=== PATIENT | male | born 1950 | race American Indian/Alaskan Native ===

== ENCOUNTER 2021-07-12 11:00 | Outpatient (CLI) | payer MEDICARE | END 2021-07-12 11:01 | disposition home or self-care (01) | LOC: SLR 11:00 | PROVIDERS: ATTEND Internal Medicine | DX: G47.30 Sleep apnea, unspecified (principal) | CPT/HCPCS: 95810 ==

== ENCOUNTER 2021-07-18 11:00 | Outpatient (CLI) | payer MEDICARE | END 2021-07-18 11:01 | disposition home or self-care (01) | LOC: SLR 11:00 | PROVIDERS: ATTEND Internal Medicine | DX: G47.33 Obstructive sleep apnea (adult) (pediatric) (principal) | CPT/HCPCS: 95811 ==

== ENCOUNTER 2021-08-08 12:18 | Outpatient (CLI) | payer MEDICARE ==
[2021-08-08 13:30] LABS: ABG Base Excess 3.4 mmol/L (-2.0-3.0); ABG HCO3 29.8 mmol/L (20.0-26.0); ABG Methemoglobin 0.6 % (0.0-1.5); ABG Oxygen Saturation 90.8 % (95.0-99.0); ABG PCO2 51.9 mm Hg; ABG PH 7.376 pH Units (7.350-7.450); ABG PO2 58.4 mm Hg (80.0-90.0)
== END 2021-08-08 12:19 | disposition home or self-care (01) ==
LOC: LAB 12:18
PROVIDERS: ATTEND Internal Medicine
DX: J44.9 Chronic obstructive pulmonary disease, unspecified (principal)
CPT/HCPCS: 82803

== ENCOUNTER 2021-12-09 11:35 | Outpatient (CLI) | payer MEDICARE ==
[2021-12-09 12:24] LABS: Hemoglobin 13.2 gm/dl (11.8-15.2); Mean Corpuscular HGB Conc 31 % (32-34); Mean Corpuscular Volume 88 fl (84-94); Platelet Count 203 K/mm3 (140-440); Red Blood Count 4.78 M/mm3 (3.65-5.03)
[2021-12-09 12:30] LABS: ABG Base Excess 3.9 mmol/L (-2.0-3.0); ABG HCO3 30.5 mmol/L (20.0-26.0); ABG Methemoglobin 0.7 % (0.0-1.5); ABG Oxygen Saturation 89.1 % (95.0-99.0); ABG PCO2 54.2 mm Hg; ABG PH 7.367 pH Units (7.350-7.450); ABG PO2 55.5 mm Hg (80.0-90.0)
[2021-12-09 12:40] LABS: INR 0.92 (0.87-1.13)
[2021-12-09 12:41] LABS: Partial Thromboplastin Time 30.5 Sec. (24.2-36.6)
[2021-12-09 12:46] LABS: Alanine Aminotransferase 13 units/L (7-56); Albumin 3.9 g/dL (3.9-5); BUN/Creatinine Ratio 13; Blood Urea Nitrogen 17 mg/dL (9-20); Calcium 9.3 mg/dL (8.4-10.2); Chol/HDL Ratio 2.48 %; HDL Cholesterol 31 mg/dL (40-59); Hemolysis Index 4; LDL Cholesterol,Direct 30 mg/dL (50-130)
--- NOTE | 2021-12-09 15:42 | XRay Report ---
CHEST 2 VIEWS INDICATION: SOB. COMPARISON: Full 2012. FINDINGS: Support devices: None. Heart: Within normal limits. Prominence of the blayne is similar to the previous exam. Lungs/Pleura: No acute air space or interstitial disease. No significant pleural effusion. Underlyi ng COPD remains. IMPRESSION: 1. Persistent COPD with hilar enlargement. 2. No acute appearing infiltrate. Signer Name: Sujit Kunz MD Signed: 12/09/2021 3:38 PM Workstation Name: [id number]
== END 2021-12-09 11:36 | disposition home or self-care (01) ==
LOC: XRAY 11:35
PROVIDERS: ATTEND Internal Medicine
DX: J44.9 Chronic obstructive pulmonary disease, unspecified (principal); E78.00 Pure hypercholesterolemia, unspecified; E11.9 Type 2 diabetes mellitus without complications; I10 Essential (primary) hypertension; K21.9 Gastro-esophageal reflux disease without esophagitis; G47.33 Obstructive sleep apnea (adult) (pediatric)
CPT/HCPCS: 36415; 71046; 80053; 80061; 82803; 84436; 84443; 85027; 85610; 85730

== ENCOUNTER 2022-01-17 18:00 | Emergency (ER) | payer MEDICARE ==
[2022-01-17] MEDS ORDERED: ALBUTEROL 2.5 MG/3 ML NEBU IH ONE (18:15)
[2022-01-17] MEDS ORDERED: IPRATROPIUM 0.02% NEBU 2.5 ML IH ONE (18:15)
[2022-01-17 18:30] LABS: Basophils # (Auto) 0.1 K/mm3 (0.0-0.1); Eosinophils % (Auto) 0.3 % (0.0-4.3); Hematocrit 39.7 % (35.5-45.6); Lymphocytes # (Auto) 0.7 K/mm3 (1.2-5.4); Lymphocytes % (Auto) 8.5 % (13.4-35.0); Mean Corpuscular HGB Conc 33 % (32-34); Mean Corpuscular Volume 87 fl (84-94); Monocytes # (Auto) 0.7 K/mm3 (0.0-0.8); Monocytes % (Auto) 8.1 % (0.0-7.3); Platelet Count 223 K/mm3 (140-440); Red Blood Count 4.58 M/mm3 (3.65-5.03); Red Cell Distribution Width 14.7 % (13.2-15.2)
--- NOTE | 2022-01-17 18:43 | XRay Report ---
XR chest 1V ap INDICATION / CLINICAL INFORMATION: SOB COMPARISON: 12/09/2021 FINDINGS: SUPPORT DEVICES: None. HEART / MEDIASTINUM: No significant abnormality. LUNGS / PLEURA: Bilateral pulmonary vascular congestion. Costophrenic sulci are sharp. No pneumothora x. ADDITIONAL FINDINGS: No significant additional findings. IMPRESSION: 1. There appears to be pulmonary vascular congestion. Correlate clinically. Signer Name: Alpesh Duran MD Signed: 01/17/2022 6:38 PM Workstation Name: [id number]
[2022-01-17 18:48] LABS: INR 0.89 (0.87-1.13)
[2022-01-17 18:55] VITALS: BP 180/100
--- NOTE | 2022-01-17 18:55 | Emergency Department Report ---
HPI - General Chief Complaint: Dyspnea/Respdistress Time Seen by Provider: 01/17/22 18:06 - HPI HPI: 71-year-old -[place] male presents to the emergency department via EMS from home with complaint of a 1 to 2-day history of shortness of breath. He has a history of COPD for which he is oxygen dependent at 4 L oxygen via nasal cannula. The patient came in through triage and was found to have a oxygen saturation of 67% on 4 L. He follows with a Dr. Campos for pulmonology. He denies any fever, chest pain, lower extremity swelling. No recent travel or sick contacts at home. He is vaccinated for COVID-19. ED Past Medical Hx - Past Medical History Hx Hypertension: Yes Hx Diabetes: Yes (IDDM 2010) Hx GERD: Yes Hx Arthritis: Yes (BACK ) Hx COPD: Yes Additional medical history: hernia - Surgical History Hx Coronary Stent: Yes (LLE) Additional Surgical History: vasectomy - Social History Smoking Status: Never Smoker - Medications Home Medications: Home Medications Medication Instructions Recorded Confirmed Last Taken Type Atenolol [Tenormin] 100 mg PO DAILY 10/08/13 05/24/15 05/23/15 History Fosinopril Sodium 40 mg PO DAILY 10/08/13 05/24/15 05/23/15 History Insulin Glargine,Hum.rec.anlog 55 unit SUB-Q DAILY 10/08/13 05/24/15 05/23/15 History [Lantus Solostar] Insulin NPH, Human [NovoLIN N] 18 units SQ DAILY 10/08/13 05/24/15 05/23/15 History Naproxen [Naprosyn TAB] 500 mg PO BID 10/08/13 05/24/15 05/23/15 History Omeprazole [PriLOSEC] 20 mg PO BID 10/08/13 05/24/15 05/23/15 History Tamsulosin [Flomax] 0.4 mg PO QDAY 10/08/13 05/24/15 05/23/15 History metFORMIN [Glucophage] 1,000 mg PO DAILY 10/08/13 05/24/15 05/23/15 History traMADoL [Ultram 50 MG tab] 50 mg PO Q4HR PRN 10/08/13 05/24/15 05/23/15 History Albuterol Sulfate [Proventil HFA] 1 - 2 puff IH Q4H PRN #1 hfa.aer.ad 10/09/13 05/24/15 05/23/15 Rx DOXYCYCLINE Hyclate [Vibramycin 100 mg PO BID #14 capsule 10/09/13 05/24/15 05/23/15 Rx CAP] Sodium Phosphate,[place]-Dibasic 133 ml RC ONCE #1 enema 10/09/13 05/24/15 05/23/15 Rx [Fleet Enema] polyethylene glycoL 3350 [Miralax] 17 gm PO DAILY #10 powder 10/09/13 05/24/15 05/23/15 Rx predniSONE [Deltasone] 20 mg PO BID #8 tablet 10/09/13 05/24/15 05/23/15 Rx Albuterol Mdi (or & Nicu Only) 2 puff IH QID PRN #1 inhalation 11/02/13 05/24/15 05/23/15 Rx [ProAir HFA Inhaler] levoFLOXacin [Levaquin TAB] 750 mg PO QDAY #7 tablet 11/02/13 05/24/15 05/23/15 Rx Gentamicin 0.3% Ophth Soln 1 drops OP Q4H #1 bottle 01/11/14 05/24/15 05/23/15 Rx HYDROcodone/APAP 7.5-325 [[place] 1 each PO Q6HR PRN #10 tablet 01/11/14 05/24/15 05/23/15 Rx 7.5-325 mg TAB] Linaclotide [Linzess] 145 mcg PO QDAY #30 capsule 03/26/15 05/24/15 05/23/15 Rx ED Review of Systems ROS: Stated complaint: SHORTNESS OF BREATH Other details as noted in HPI Comment: All other systems reviewed and negative Constitutional: denies: chills, fever Eyes: denies: eye pain, vision change ENT: denies: ear pain, throat pain Respiratory: cough, shortness of breath, SOB with exertion Cardiovascular: denies: chest pain, edema Gastrointestinal: denies: abdominal pain, vomiting Genitourinary: denies: dysuria, discharge Musculoskeletal: denies: back pain, arthralgia Skin: denies: rash, lesions Neurological: denies: headache, weakness Physical Exam - Physical Exam Vital Signs: Vital Signs 01/17/22 18:26 Temperature 97.8 F Pulse Rate 112 H Respiratory 22 Rate Blood Pressure 184/102 [Left] O2 Sat by Pulse 68 L Oximetry Physical Exam: GENERAL: The patient is well-developed well-nourished. HENT: Normocephalic. Atraumatic. Patient has moist mucous membranes. EYES: Extraocular motions are intact. NECK: Supple. Trachea is midline. CHEST/LUNGS: Clear to auscultation. There is some tachypnea and mild conver sational dyspnea. HEART/CARDIOVASCULAR: Regular. There is no tachycardia. There is no murmur. ABDOMEN: Abdomen is soft, nontender. Patient has normal bowel sounds. SKIN: Skin is warm and dry. NEURO: The patient is awake, alert, and oriented. The patient is cooperative. MUSCULOSKELETAL: There is no tenderness or deformity. There is no limitation range of motion. ED Course Vital Signs 01/17/22 18:26 Temperature 97.8 F Pulse Rate 112 H Respiratory 22 Rate Blood Pressure 184/102 [Left] O2 Sat by Pulse 68 L Oximetry - Reevaluation(s) Reevaluation #1: 01/17/22 20:[address] angiography of the chest secondary to iodine contrast allergy. I confirmed with the patient and his that the allergy was more of hives and there was no history of any type of angioedema or anaphylaxis. We discussed premedication with Solu-Medrol and Benadryl. Shortly afterwards the patient once again refused and did not want to be placed back on the monitor. He is asking to go home. As the patient was at about 70% oxygen saturation using his normal 4 L oxygen via nasal cannula, and has required a 50% Venturi mask in the emergency department, I explained that this was not a good decision and that it could lead to serious problems. The patient just feels that he needs to go up on his home oxygen and follow-up with his banquet server. I explained to the patient that he needs to remain on cardiac monitoring including pulse oximetry. I explained that he could have a recurrence of hypoxia and this could lead to increased shortness of breath, heart attack, stroke, coma, debility, or even . The patient is awake, alert, oriented, AAO x3 and has a normal decision-making capacity. Therefore, despite understanding the risks, he has decided to sign out AGAINST MEDICAL ADVICE. The patient also knows that if he changes his mind about further evaluation, adm ission, or if he has any acute distress, he can return to the emergency department immediately. - ABG Interpretation Ph: 7.301 PCO2: 74.8 PO2: 78.9 Bicarbonate: 36 Interpretation: respiratory acidosis, metabolic alkalosis ED Medical Decision Making - Lab Data Result diagrams: 01/17/22 18:16 01/17/22 18:16 Lab Results 01/17/22 01/17/22 01/17/22 Range/Units 18:15 18:16 18:16 WBC 8.6 (4.5-11.0) K/mm3 RBC 4.58 (3.65-5.03) M/mm3 Hgb 13.0 (11.8-15.2) gm/dl Hct 39.7 (35.5-45.6) % MCV 87 (84-94) fl MCH 28 (28-32) pg MCHC 33 (32-34) % RDW 14.7 (13.2-15.2) % Plt Count 223 (140-440) K/mm3 Lymph % (Auto) 8.5 L (13.4-35.0) % [place] % (Auto) 8.1 H (0.0-7.3) % Eos % (Auto) 0.3 (0.0-4.3) % Baso % (Auto) 1.0 (0.0-1.8) % Lymph # (Auto) 0.7 L (1.2-5.4) K/mm3 [place] # (Auto) 0.7 (0.0-0.8) K/mm3 Eos # (Auto) 0.0 (0.0-0.4) K/mm3 Baso # (Auto) 0.1 (0.0-0.1) K/mm3 Seg Neutrophils % 82.1 H (40.0-70.0) % Seg Neutrophils # 7.1 (1.8-7.7) K/mm3 PT 13.0 (12.2-14.9) Sec. INR 0.89 (0.87-1.13) D-Dimer 296.89 H (0-234) ng/mlDDU ABG pH (7.350-7.450) pH Units ABG pCO2 mm Hg ABG pO2 (80.0-90.0) mm Hg ABG HCO3 (20.0-26.0) mmol/L ABG O2 Saturation (95.0-99.0) % ABG O2 Content (0.0-44) ABG Base Excess (-2.0-3.0) mmol/L ABG Hemoglobin (14.0-18.0) gm/dl ABG Carboxyhemoglobin (0.0-5.0) % ABG Methemoglobin (0.0-1.5) % Oxyhemoglobin (95.0-99.0) % FiO2 % Sodium (137-145) mmol/L Potassium (3.6-5.0) mmol/L Chloride (98-107) mmol/L Carbon Dioxide (22-30) mmol/L Anion Gap mmol/L BUN (9-20) mg/dL Creatinine (0.8-1.3) mg/dL Estimated GFR ml/min BUN/Creatinine Ratio % Glucose (75-100) mg/dL POC Glucose 415 H (70-105) mg/dL Calcium (8.4-10.2) mg/dL Total Bilirubin (0.1-1.2) mg/dL AST (5-40) units/L ALT (7-56) units/L Alkaline Phosphatase (35-129) units/L Troponin T (0.00-0.029) ng/mL NT-Pro-B Natriuret Pep (0-900) pg/mL Total Protein (6.3-8.2) g/dL Albumin (3.9-5) g/dL Albumin/Globulin Ratio % 01/17/22 01/17/22 01/17/22 Range/Units 18:16 18:16 18:50 WBC (4.5-11.0) K/mm3 RBC (3.65-5.03) M/mm3 Hgb (11.8-15.2) gm/dl Hct (35.5-45.6) % MCV (84-94) fl MCH (28-32) pg MCHC (32-34) % RDW (13.2-15.2) % Plt Count (140-440) K/mm3 Lymph % (Auto) (13.4-35.0) % [place] % (Auto) (0.0-7.3) % Eos % (Auto) (0.0-4.3) % Baso % (Auto) (0.0-1.8) % Lymph # (Auto) (1.2-5.4) K/mm3 [place] # (Auto) (0.0-0.8) K/mm3 Eos # (Auto) (0.0-0.4) K/mm3 Baso # (Auto) (0.0-0.1) K/mm3 Seg Neutrophils % (40.0-70.0) % Seg Neutrophils # (1.8-7.7) K/mm3 PT (12.2-14.9) Sec. INR (0.87-1.13) D-Dimer (0-234) ng/mlDDU ABG pH 7.301 L (7.350-7.450) pH Units ABG pCO2 74.8 mm Hg ABG pO2 78.9 L (80.0-90.0) mm Hg ABG HCO3 36.1 H (20.0-26.0) mmol/L ABG O2 Saturation 95.5 (95.0-99.0) % ABG O2 Content 16.3 (0.0-44) ABG Base Excess 7.2 H (-2.0-3.0) mmol/L ABG Hemoglobin 12.5 L (14.0-18.0) gm/dl ABG Carboxyhemoglobin 2.8 (0.0-5.0) % ABG Methemoglobin 0.6 (0.0-1.5) % Oxyhemoglobin 92.2 L (95.0-99.0) % FiO2 50 % Sodium 140 (137-145) mmol/L Potassium 4.8 (3.6-5.0) mmol/L Chloride 101.6 (98-107) mmol/L Carbon Dioxide 28 (22-30) mmol/L Anion Gap 15 mmol/L BUN 18 (9-20) mg/dL Creatinine 0.9 (0.8-1.3) mg/dL Estimated GFR > 60 ml/min BUN/Creatinine Ratio 20 % Glucose 372 H (75-100) mg/dL POC Glucose (70-105) mg/dL Calcium 8.0 L (8.4-10.2) mg/dL Total Bilirubin 0.30 (0.1-1.2) mg/dL AST 14 (5-40) units/L ALT 15 (7-56) units/L Alkaline Phosphatase 104 (35-129) units/L Troponin T < 0.010 (0.00-0.029) ng/mL NT-Pro-B Natriuret Pep 179.2 (0-900) pg/mL Total Protein 6.5 (6.3-8.2) g/dL Albumin 3.8 L (3.9-5) g/dL Albumin/Globulin Ratio 1.4 % - EKG Data EKG shows normal: sinus rhythm (PVCs), axis, intervals, QRS complexes, ST-T waves Rate: tachycardia (103 bpm) - EKG Data When compared to previous EKG there are: previous EKG unavailable Interpretation: other (Sinus tachycardia 103 bpm, normal axis, normal intervals, PVCs. No ST elevation IN) - Radiology Data Radiology results: report reviewed XR chest 1V ap INDICATION / CLINICAL INFORMATION: SOB COMPARISON: 12/09/2021 FINDINGS: SUPPORT DEVICES: None. HEART / MEDIASTINUM: No significant abnormality. LUNGS / PLEURA: Bilateral pulmonary vascular congestion. Costophrenic sulci are sharp. No pneumothorax. ADDITIONAL FINDINGS: No significant additional findings. IMPRESSION: 1. There appears to be pulmonary vascular congestion. Correlate clinically. - Medical Decision Making This patient presented to the emergency department with shortness of breath and hypoxia. He had an oxygen saturation of about 70% despite being on the 4 L oxygen via nasal cannula for his COPD. The patient was placed on a nonrebreather and we were able to titrated down to a 50% Venturi mask. Chest x-ray shows bilateral patchy infiltrates concerning for edema versus pneumonia. An ABG was done that shows hypercapnia with a PCO2 of about 75 causing respiratory acidosis, as well as some metabolic alkalosis. EKG did not have any morphology consistent with ST elevation myocardial infarction. Despite the chest x-ray findings, the patient's BNP was low and this does not appear consistent with interstitial edema or CHF. The patient had a slightly elevated D-dimer level, so a CT angiography of the chest was ordered. At first the patient agreed to do the test with pretreatment secondary to an iodine contrast causing urticaria. However, also around this time, the patient started demanding to be discharged home. He feels that he just needs his oxygen titrated by his banquet server. I tried to explain to the patient that he has required much more supplemental oxygen that at home, and we have not yet found the reason for these increased requirements. I also explained that we need to rule out a pulmonary embolism. I also explained that the patient had a very elevated PCO2 and if it was to increase that he could have altered mental status. Overall, as per the reevaluation section, we had a long conversation regarding the risks of leaving AGAINST MEDICAL ADVICE. However the patient has a normal decision-making capacity, and therefore despite understanding the risk, he has signed out AMA. Critical Care Time: No Critical care attestation.: If time is entered above; I have spent that time in minutes in the direct care o f this critically ill patient, excluding procedure time. ED Disposition Clinical Impression: COPD with exacerbation, Hypoxemia, Acute respiratory distress Hypertension Qualifiers: Hypertension type: primary hypertension Qualified Code(s): I10 - Essential (primary) hypertension Disposition: 07 LEFT AGAINST MEDICAL ADVICE Is pt being admited?: No Instructions: Chronic Obstructive Pulmonary Disease (ED), Hypertension (ED) Additional Instructions: Please follow-up with your primary care physician and banquet server as soon as possible. Return to the emergency department if you change your mind about further evaluation and admission, or with any acute distress. Referrals: ELIAS CAMPOS MD [Primary Care Provider] - 3-5 Days Forms: AMA Form Time of Disposition: 20:09
[2022-01-17 18:58] LABS: Alanine Aminotransferase 15 units/L (7-56); Albumin 3.8 g/dL (3.9-5); BUN/Creatinine Ratio 20; Blood Urea Nitrogen 18 mg/dL (9-20); Hemolysis Index 49
[2022-01-17] MEDS ORDERED: SODIUM CHLORIDE 0.9% 500 ML 500 ML IV ONE (19:05)
[2022-01-17] MEDS ORDERED: INSULIN REGULAR, HUMAN 100 UNITS/1 ML IV ONE (19:06)
[2022-01-17 19:10] LABS: ABG Base Excess 7.2 mmol/L (-2.0-3.0); ABG HCO3 36.1 mmol/L (20.0-26.0); ABG Methemoglobin 0.6 % (0.0-1.5); ABG Oxygen Saturation 95.5 % (95.0-99.0); ABG PCO2 74.8 mm Hg; ABG PH 7.301 pH Units (7.350-7.450); ABG PO2 78.9 mm Hg (80.0-90.0)
--- NOTE | 2022-01-19 13:12 | Electrocardiograph Report ---
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
== END 2022-01-17 20:15 | disposition left against medical advice (07) ==
LOC: ED 18:00
DX: J44.1 Chronic obstructive pulmonary disease with (acute) exacerbation (principal); R09.02 Hypoxemia; R06.03 Acute respiratory distress; I10 Essential (primary) hypertension
CPT/HCPCS: 36415; 71045; 80053; 82803; 82962; 83880; 84484; 85025; 85379; 85610; 93005; 93010; 99284

== ENCOUNTER 2022-01-18 23:08 | Inpatient (IN) | payer MEDICARE ==
--- NOTE | 2022-01-18 23:26 | Emergency Department Report ---
ED General Adult HPI - General Chief complaint: Dyspnea/Respdistress Stated complaint: IRVIN PUI?: No Time Seen by Provider: 01/18/22 23:24 Source: patient, family, RN notes reviewed, old records reviewed Mode of arrival: Wheelchair Limitations: Physical Limitation - History of Present Illness Initial comments: Pulmonology: Dr. Joanna Cohu The patient is a 71-year-old gentleman with a history of obesity, body mass index of 31.5, obstructive sleep apnea, does not have a CPAP, history of COPD, PAD with right lower extremity stent and chronic right lower extremity wound. The patient also has a history of chronic respiratory failure, and is currently on home oxygen. He presents to the ER with a complaint of shortness of breath which is painless, and low oxygen levels. He reports that he is typically on 2 L of home oxygen, however, he reports that he is now on 4 L. He has chronic lower extremity swelling. He was seen in the emergency room by my colleague yesterday, and found to have hypoxic/hypoxemic respiratory failure, and respiratory acidosis, with partial metabolic compensation. Patient denies travel, surgery, immobilization. He has chronic lower extremity swelling. He is not quite sure if he has unintentional weight gain. He was found to have acute hypoxic respiratory failure, started on BiPAP in the emergency room, and this improved his symptoms. -: Gradual Severity scale (0 -10): 0 Consistency: constant - Related Data Home Medications Medication Instructions Recorded Confirmed Last Taken Atenolol [Tenormin] 100 mg PO DAILY 10/08/13 05/24/15 05/23/15 Fosinopril Sodium 40 mg PO DAILY 10/08/13 05/24/15 05/23/15 Insulin Glargine,Hum.rec.anlog 55 unit SUB-Q DAILY 10/08/13 05/24/15 05/23/15 [Lantus Solostar] Insulin NPH, Human [NovoLIN N] 18 units SQ DAILY 10/08/13 05/24/15 05/23/15 Naproxen [Naprosyn TAB] 500 mg PO BID 10/08/13 05/24/15 05/23/15 Omeprazole [PriLOSEC] 20 mg PO BID 10/08/13 05/24/15 05/23/15 Tamsulosin [Flomax] 0.4 mg PO QDAY 10/08/13 05/24/15 05/23/15 metFORMIN [Glucophage] 1,000 mg PO DAILY 10/08/13 05/24/15 05/23/15 traMADoL [Ultram 50 MG tab] 50 mg PO Q4HR PRN 10/08/13 05/24/15 05/23/15 Previous Rx's Medication Instructions Recorded Last Taken Type Albuterol Sulfate [Proventil HFA] 1 - 2 puff IH Q4H PRN #1 hfa.aer.ad 10/09/13 05/23/15 Rx DOXYCYCLINE Hyclate [Vibramycin 100 mg PO BID #14 capsule 10/09/13 05/23/15 Rx CAP] Sodium Phosphate,[place]-Dibasic 133 ml RC ONCE #1 enema 10/09/13 05/23/15 Rx [Fleet Enema] polyethylene glycoL 3350 [Miralax] 17 gm PO DAILY #10 powder 10/09/13 05/23/15 Rx predniSONE [Deltasone] 20 mg PO BID #8 tablet 10/09/13 05/23/15 Rx Albuterol Mdi (or & Nicu Only) 2 puff IH QID PRN #1 inhalation 11/02/13 05/23/15 Rx [ProAir HFA Inhaler] levoFLOXacin [Levaquin TAB] 750 mg PO QDAY #7 tablet 11/02/13 05/23/15 Rx Gentamicin 0.3% Ophth Soln 1 drops OP Q4H #1 bottle 01/11/14 05/23/15 Rx HYDROcodone/APAP 7.5-325 [[place] 1 each PO Q6HR PRN #10 tablet 01/11/14 05/23/15 Rx 7.5-325 mg TAB] Linaclotide [Linzess] 145 mcg PO QDAY #30 capsule 03/26/15 05/23/15 Rx Allergies Allergy/AdvReac Type Severity Reaction Status Date / Time Iodinated Contrast Media AdvReac Hives Verified 01/17/22 18:31 [Iodinated Contrast Media - IV Dye] Penicillins AdvReac Hives Verified 01/17/22 18:31 ED Review of Systems ROS: Stated complaint: IRVIN Other details as noted in HPI Constitutional: malaise, weakness. denies: fever Eyes: denies: eye discharge ENT: congestion Respiratory: shortness of breath, SOB with exertion, SOB at rest, wheezing Cardiovascular: dyspnea on exertion, orthopnea, edema. denies: palpitations Gastrointestinal: denies: abdominal pain Musculoskeletal: myalgia Neurological: weakness Hematological/Lymphatic: denies: easy bleeding ED Past Medical Hx - Past Medical History Previous Medical History?: Yes Hx Hypertension: Yes Hx Diabetes: Yes (IDDM 2010) Hx GERD: Yes Hx Arthritis: Yes (BACK ) Hx COPD: Yes Additional medical history: hernia - Surgical History Past Surgical History?: Yes Hx Coronary Stent: Yes (LLE) Additional Surgical History: vasectomy - Social History Smoking Status: Never Smoker - Medications Home Medications: Home Medications Medication Instructions Recorded Confirmed Last Taken Type Atenolol [Tenormin] 100 mg PO DAILY 10/08/13 05/24/15 05/23/15 History Fosinopril Sodium 40 mg PO DAILY 10/08/13 05/24/15 05/23/15 History Insulin Glargine,Hum.rec.anlog 55 unit SUB-Q DAILY 10/08/13 05/24/15 05/23/15 History [Lantus Solostar] Insulin NPH, Human [NovoLIN N] 18 units SQ DAILY 10/08/13 05/24/15 05/23/15 History Naproxen [Naprosyn TAB] 500 mg PO BID 10/08/13 05/24/15 05/23/15 History Omeprazole [PriLOSEC] 20 mg PO BID 10/08/13 05/24/15 05/23/15 History Tamsulosin [Flomax] 0.4 mg PO QDAY 10/08/13 05/24/15 05/23/15 History metFORMIN [Glucophage] 1,000 mg PO DAILY 10/08/13 05/24/15 05/23/15 History traMADoL [Ultram 50 MG tab] 50 mg PO Q4HR PRN 10/08/13 05/24/15 05/23/15 History Albuterol Sulfate [Proventil HFA] 1 - 2 puff IH Q4H PRN #1 hfa.aer.ad 10/09/13 05/24/15 05/23/15 Rx DOXYCYCLINE Hyclate [Vibramycin 100 mg PO BID #14 capsule 10/09/13 05/24/15 05/23/15 Rx CAP] Sodium Phosphate,[place]-Dibasic 133 ml RC ONCE #1 enema 10/09/13 05/24/15 05/23/15 Rx [Fleet Enema] polyethylene glycoL 3350 [Miralax] 17 gm PO DAILY #10 powder 10/09/13 05/24/15 05/23/15 Rx predniSONE [Deltasone] 20 mg PO BID #8 tablet 10/09/13 05/24/15 05/23/15 Rx Albuterol Mdi (or & Nicu Only) 2 puff IH QID PRN #1 inhalation 11/02/13 05/24/15 05/23/15 Rx [ProAir HFA Inhaler] levoFLOXacin [Levaquin TAB] 750 mg PO QDAY #7 tablet 11/02/13 05/24/15 05/23/15 Rx Gentamicin 0.3% Ophth Soln 1 drops OP Q4H #1 bottle 01/11/14 05/24/15 05/23/15 Rx HYDROcodone/APAP 7.5-325 [[place] 1 each PO Q6HR PRN #10 tablet 01/11/14 05/24/15 05/23/15 Rx 7.5-325 mg TAB] Linaclotide [Linzess] 145 mcg PO QDAY #30 capsule 03/26/15 05/24/15 05/23/15 Rx ED Physical Exam - General Limitations: No Limitations, Physical Limitation General appearance: alert, in no apparent distress, obese - Head Head exam: Present: atraumatic, normocephalic - Eye Eye exam: Present: normal appearance, EOMI. Absent: nystagmus - ENT ENT exam: Present: normal exam, normal orophraynx, mucous membranes moist, normal external ear exam - Neck Neck exam: Present: normal inspection, full ROM. Absent: tenderness, meningismus - Respiratory Respiratory exam: Present: respiratory distress, wheezes, rales, rhonchi - Cardiovascular Cardiovascular Exam: Present: regular rate, normal rhythm, JVD. Absent: bradycardia, tachycardia, irregular rhythm, systolic murmur, diastolic murmur, rubs, gallop - GI/Abdominal GI/Abdominal exam: Present: soft. Absent: distended, tenderness, guarding, rebound, rigid, pulsatile mass - Rectal Rectal exam: Present: deferred - Extremities Exam Extremities exam: Present: full ROM, pedal edema (3+ edema noted in the bilateral lower extremities.), calf tenderness (The right lower extremity is larger than left lower extremity, although both are swollen.), other (1+ dorsalis pedis pulses noted bilaterally. 2+ pulses noted in bilateral radial distributions.). Absent: normal inspection (Chronic appearing wounds noted to the plantar aspect of the right foot. There is no redness, pus or streaking.) - Back Exam Back exam: Present: normal inspection. Absent: tenderness, CVA tenderness (R), CVA tenderness (L), paraspinal tenderness, vertebral tenderness - Neurological Exam Neurological exam: Present: alert, other (No facial droop. Tongue midline. Extraocular movements intact bilaterally. Facial sensation intact to light touch in V1, V2, V3 distribution bilaterally. 5 and a 5 strength in 4 extremities. Sensation intact to light touch in 4 extremities.). Absent: motor sensory deficit - Psychiatric Psychiatric exam: Present: normal affect, normal mood - Skin Skin exam: Present: warm, dry, intact, normal color. Absent: rash ED Course Vital Signs 01/18/22 01/19/22 01/19/22 23:13 00:49 00:53 Temperature 97.5 F L Pulse Rate 93 H 90 Pulse Rate [ 86 Bilateral] Respiratory 20 22 Rate Respiratory 22 Rate [Bilateral ] Blood Pressure 131/76 [Right] O2 Sat by Pulse 51 L 100 Oximetry 01/19/22 01/19/22 01/19/22 01:14 01:15 03:14 Temperature 98 F Pulse Rate 91 H 82 Pulse Rate [ Bilateral] Respiratory 16 18 16 Rate Respiratory Rate [Bilateral ] Blood Pressure 123/77 112/55 [Right] O2 Sat by Pulse 100 100 100 Oximetry - Reevaluation(s) Reevaluation #1: 01/19/22 01:32 Differential diagnosis, including but not limited to: COPD exacerbation, obstru ctive sleep apnea, pulmonary hypertension, right-sided heart failure, congestive heart failure, acute on chronic hypoxic respiratory failure, acute hypercapnic respiratory failure, lower extremity DVT, pulmonary embolism Assessment and plan: 71-year-old gentleman, who is afebrile, but hypoxic, requ iring initiation of BiPAP therapy, who likely has obstructive sleep apnea, pulmonary hypertension, and right-sided heart failure. Saturating 95% on BiPAP. Given profound hypoxia, requirements for sitting up, would not obtain CT scan of the chest emergently, as the patient may decompensate if completely supine. We will medically optimize him, give albuterol, Atrovent, steroids, Lasix, and obtain lower extremity DVT study. If the DVT is noted, we will systemically anticoagulate the patient. However, the patient denies travel, surgery, immobilization, and I favor combination of obstructive sleep apnea, COPD, pulmonary hypertension, right-sided heart failure, obesity hypoventilation syndrome as most likely etiology for his presentation. Patient is agreeable to admission hospitalization. He did indicates that he would also be agreeable to CT scan of the chest if necessary. However, I will defer to the inpatient team to decide whether or not they would like to order CT scan of the chest, as it would be unsafe to obtain CT scan of the chest at this time. 01/19/22 02:59 Patient much improved on BiPAP. Laboratory studies reviewed and appreciated. DVT study preliminarily interpreted by myself and ct scan technologist as negative for DVT. Lasix ordered. Hospital physician, Dr. Yanet Bhatia to admit to [facility] Lasix ordered for presumed hypoxemic respiratory failure, with probable right- sided congestive heart failure. ED Medical Decision Making - Lab Data Result diagrams: 01/19/22 01:37 01/19/22 01:37 Vital Signs 01/18/22 01/19/22 01/19/22 23:13 00:49 00:53 Temperature 97.5 F L Pulse Rate 93 H 90 Pulse Rate [ 86 Bilateral] Respiratory 20 22 Rate Respiratory 22 Rate [Bilateral ] Blood Pressure 131/76 [Right] O2 Sat by Pulse 51 L 100 Oximetry 01/19/22 01/19/22 01:14 01:15 Temperature 98 F Pulse Rate 91 H Pulse Rate [ Bilateral] Respiratory 16 18 Rate Respiratory Rate [Bilateral ] Blood Pressure 123/77 [Right] O2 Sat by Pulse 100 100 Oximetry Lab Results 01/19/22 01/19/22 01/19/22 Range/Units 01:37 01:37 01:37 WBC 8.1 (4.5-11.0) K/mm3 RBC 4.48 (3.65-5.03) M/mm3 Hgb 12.1 (11.8-15.2) gm/dl Hct 39.2 (35.5-45.6) % MCV 88 (84-94) fl MCH 27 L (28-32) pg MCHC 31 L (32-34) % RDW 14.2 (13.2-15.2) % Plt Count 206 (140-440) K/mm3 Lymph % (Auto) 6.4 L (13.4-35.0) % [place] % (Auto) 6.4 (0.0-7.3) % Eos % (Auto) 0.2 (0.0-4.3) % Baso % (Auto) 0.5 (0.0-1.8) % Lymph # (Auto) 0.5 L (1.2-5.4) K/mm3 [place] # (Auto) 0.5 (0.0-0.8) K/mm3 Eos # (Auto) 0.0 (0.0-0.4) K/mm3 Baso # (Auto) 0.0 (0.0-0.1) K/mm3 Seg Neutrophils % 86.5 H (40.0-70.0) % Seg Neutrophils # 7.0 (1.8-7.7) K/mm3 PT 13.3 (12.2-14.9) Sec. INR 0.92 (0.87-1.13) ABG pH POC ABG pCO2 POC ABG pO2 POC ABG HCO3 ABG O2 Saturation ABG O2 Content POC ABG Base Excess ABG Hemoglobin ABG Oxyhemoglobin ABG Methemoglobin ABG Sodium ABG Potassium ABG Chloride ABG Glucose ABG Lactate VBG pH (7.320-7.420) Carboxyhemoglobin FiO2 % Sodium 141 (137-145) mmol/L Potassium 5.1 H (3.6-5.0) mmol/L Chloride 99.8 (98-107) mmol/L Carbon Dioxide 29 (22-30) mmol/L Anion Gap 17 mmol/L BUN 27 H (9-20) mg/dL Creatinine 1.2 (0.8-1.3) mg/dL Estimated GFR > 60 ml/min BUN/Creatinine Ratio 23 % Glucose 248 H (75-100) mg/dL Calcium 8.5 (8.4-10.2) mg/dL Magnesium (1.7-2.3) mg/dL Total Bilirubin 0.30 (0.1-1.2) mg/dL Bilirubin AST 14 (5-40) units/L ALT 18 (7-56) units/L Alkaline Phosphatase 89 (35-129) units/L Total Creatine Kinase (55-170) units/L Troponin T (0.00-0.029) ng/mL NT-Pro-B Natriuret Pep (0-900) pg/mL Total Protein 7.0 (6.3-8.2) g/dL Albumin 3.6 L (3.9-5) g/dL Albumin/Globulin Ratio 1.1 % Arterial Blood Glucose Arterial Blood Ionized Calcium 01/19/22 01/19/22 Range/Units 01:37 01:37 WBC (4.5-11.0) K/mm3 RBC (3.65-5.03) M/mm3 Hgb (11.8-15.2) gm/dl Hct (35.5-45.6) % MCV (84-94) fl MCH (28-32) pg MCHC (32-34) % RDW (13.2-15.2) % Plt Count (140-440) K/mm3 Lymph % (Auto) (13.4-35.0) % [place] % (Auto) (0.0-7.3) % Eos % (Auto) (0.0-4.3) % Baso % (Auto) (0.0-1.8) % Lymph # (Auto) (1.2-5.4) K/mm3 [place] # (Auto) (0.0-0.8) K/mm3 Eos # (Auto) (0.0-0.4) K/mm3 Baso # (Auto) (0.0-0.1) K/mm3 Seg Neutrophils % (40.0-70.0) % Seg Neutrophils # (1.8-7.7) K/mm3 PT (12.2-14.9) Sec. INR (0.87-1.13) ABG pH TNR POC ABG pCO2 TNR POC ABG pO2 TNR POC ABG HCO3 TNR ABG O2 Saturation TNR ABG O2 Content TNR POC ABG Base Excess TNR ABG Hemoglobin TNR ABG Oxyhemoglobin TNR ABG Methemoglobin TNR ABG Sodium TNR ABG Potassium TNR ABG Chloride TNR ABG Glucose TNR ABG Lactate TNR VBG pH 7.274 L (7.320-7.420) Carboxyhemoglobin TNR FiO2 % TNR Sodium (137-145) mmol/L Potassium (3.6-5.0) mmol/L Chloride (98-107) mmol/L Carbon Dioxide (22-30) mmol/L Anion Gap mmol/L BUN (9-20) mg/dL Creatinine (0.8-1.3) mg/dL Estimated GFR ml/min BUN/Creatinine Ratio % Glucose (75-100) mg/dL Calcium (8.4-10.2) mg/dL Magnesium 2.60 H (1.7-2.3) mg/dL Total Bilirubin (0.1-1.2) mg/dL Bilirubin TNR AST (5-40) units/L ALT (7-56) units/L Alkaline Phosphatase (35-129) units/L Total Creatine Kinase 130 (55-170) units/L Troponin T < 0.010 (0.00-0.029) ng/mL NT-Pro-B Natriuret Pep 261.5 (0-900) pg/mL Total Protein (6.3-8.2) g/dL Albumin (3.9-5) g/dL Albumin/Globulin Ratio % Arterial Blood Glucose TNR Arterial Blood Ionized Calcium TNR - EKG Data -: EKG Interpreted by [place] EKG shows normal: sinus rhythm Rate: normal - EKG Data 01/19/22 01:27 The EKG is interpreted at 23: 41 Sinus rhythm, rate 86 bpm. Normal axis, normal P wave axis, high left ventricular voltage, poor R wave progression, QTC 4 4 7 ms. Abnormal EKG. Not a STEMI - Radiology Data Radiology results: pending, report reviewed, image reviewed CHEST 1 VIEW INDICATION: Dyspnea. COMPARISON: One day prior. FINDINGS: Support devices: None. Heart: Stable. Pulmonary venous hypertension is again noted. Lungs/Pleura: Mild diffuse interstitial opacities are concerning for pulmonary edema. No pleural abnormality. IMPRESSION: 1. Mild diffuse interstitial opacities are nonspecific. This could be due to pulmonary edema. However, these are of uncertain chronicity. Signer Name: Mani Joyce MD Signed: 01/18/2022 11:22 PM XR chest 1V ap INDICATION / CLINICAL INFORMATION: SOB COMPARISON: 12/09/2021 FINDINGS: SUPPORT DEVICES: None. HEART / MEDIASTINUM: No significant abnormality. LUNGS / PLEURA: Bilateral pulmonary vascular congestion. Costophrenic sulci are sharp. No pneumothorax. ADDITIONAL FINDINGS: No significant additional findings. IMPRESSION: 1. There appears to be pulmonary vascular congestion. Correlate clinically. Signer Name: Alpesh Duran MD Signed: 01/17/2022 5:38 PM Workstation Name: [id number] DUPLEX DOPPLER LOWER EXTREMITY VEINS, BILATERAL INDICATION / CLINICAL INFORMATION: lower ext swelling dyspnea. TECHNIQUE: Duplex doppler imaging was performed through the veins of both lower extremities using venous compression a nd other maneuvers. COMPARISON: None available. FINDINGS: RIGHT COMMON FEMORAL VEIN: Negative. RIGHT FEMORAL VEIN: Negative. RIGHT POPLITEAL VEIN: Negative. RIGHT CALF VEINS: Negative. LEFT COMMON FEMORAL VEIN: Negative. LEFT FEMORAL VEIN: Negative. LEFT POPLITEAL VEIN: Negative. LEFT CALF VEINS: Negative. ADDITIONAL FINDINGS: None. IMPRESSION: 1. No sonographic evidence for DVT in either lower extremity. Signer Name: Mani Joyce MD Signed: 01/19/2022 2:14 AM Workstation Name: [id number] Critical Care Time: Yes Critical care time in (mins) excluding proc time.: 45 Critical care attestation.: If time is entered above; I have spent that time in minutes in the direct care of this critically ill patient, excluding procedure time. ED Disposition Clinical Impression: Acute respiratory failure with hypoxia, Swelling of lower extremity Disposition: ADMITTED INPATIENT Is pt being admited?: Yes Does the pt Need Aspirin: No Condition: Serious
[2022-01-19] MEDS ORDERED: methylPREDNISolone Sod Succinate 125 MG/2 ML INJ IV ONE (00:25)
[2022-01-19] MEDS ORDERED: diphenhydrAMINE 50 MG/ML VIAL IV ONE (00:25)
[2022-01-19] MEDS ORDERED: IPRATROPIUM 0.02% NEBU 2.5 ML IH ONE (00:25)
[2022-01-19] MEDS ORDERED: FAMOTIDINE 20 MG/2 ML INJ IV ONE (00:25)
[2022-01-19] MEDS ORDERED: ALBUTEROL 2.5 MG/3 ML NEBU IH ONE (00:25)
--- NOTE | 2022-01-19 00:27 | XRay Report ---
CHEST 1 VIEW INDICATION: Dyspnea. COMPARISON: One day prior. FINDINGS: Support devices: None. Heart: Stable. Pulmonary venous hypertension is again noted. Lungs/Pleura: Mild diffuse interstitial opacities are concerning for pulmonary edema. No pleural abno rmality. IMPRESSION: 1. Mild diffuse interstitial opacities are nonspecific. This could be due to pulmonary edema. However , these are of uncertain chronicity. Signer Name: Mani Joyce MD Signed: 01/19/2022 12:22 AM Workstation Name: [id number]
[2022-01-19 01:53] LABS: VEN PH 7.274 (7.320-7.420)
[2022-01-19 02:00] LABS: Basophils % (Auto) 0.5 % (0.0-1.8); Eosinophils % (Auto) 0.2 % (0.0-4.3); Hematocrit 39.2 % (35.5-45.6); Hemoglobin 12.1 gm/dl (11.8-15.2); Lymphocytes # (Auto) 0.5 K/mm3 (1.2-5.4); Lymphocytes % (Auto) 6.4 % (13.4-35.0); Mean Corpuscular HGB Conc 31 % (32-34); Mean Corpuscular Volume 88 fl (84-94); Monocytes # (Auto) 0.5 K/mm3 (0.0-0.8); Monocytes % (Auto) 6.4 % (0.0-7.3); Platelet Count 206 K/mm3 (140-440); Red Blood Count 4.48 M/mm3 (3.65-5.03); Red Cell Distribution Width 14.2 % (13.2-15.2)
[2022-01-19 02:12] LABS: INR 0.92 (0.87-1.13)
[2022-01-19 02:31] LABS: Alanine Aminotransferase 18 units/L (7-56); Albumin 3.6 g/dL (3.9-5); BUN/Creatinine Ratio 23; Blood Urea Nitrogen 27 mg/dL (9-20); Calcium 8.5 mg/dL (8.4-10.2); Hemolysis Index 4
[2022-01-19] MEDS ORDERED: FUROSEMIDE 40 MG/4 ML INJ IV ONE (02:58)
--- NOTE | 2022-01-19 03:18 | Vascular Lab Report ---
DUPLEX DOPPLER LOWER EXTREMITY VEINS, BILATERAL INDICATION / CLINICAL INFORMATION: lower ext swelling dyspnea. TECHNIQUE: Duplex doppler imaging was performed through the veins of both lower extremities using venous shana ramon and other maneuvers. COMPARISON: None available. FINDINGS: RIGHT COMMON FEMORAL VEIN: Negative. RIGHT FEMORAL VEIN: Negative. RIGHT POPLITEAL VEIN: Negative. RIGHT CALF VEINS: Negative. LEFT COMMON FEMORAL VEIN: Negative. LEFT FEMORAL VEIN: Negative. LEFT POPLITEAL VEIN: Negative. LEFT CALF VEINS: Negative. ADDITIONAL FINDINGS: None. IMPRESSION: 1. No sonographic evidence for DVT in either lower extremity. Signer Name: Mani Joyce MD Signed: 01/19/2022 3:14 AM Workstation Name: [id number]
[2022-01-19] MEDS ORDERED: DEXTROSE 50% IN WATER (25GM) 50 ML SYRINGE IV PRN (03:34)
[2022-01-19] MEDS ORDERED: ACETAMINOPHEN 325 MG TAB PO PRN (03:34)
[2022-01-19] MEDS ORDERED: ONDANSETRON 4 MG/2 ML INJ IV PRN (03:34)
[2022-01-19] MEDS ORDERED: MORPHINE 2 MG/1 ML INJ IV PRN (03:34)
[2022-01-19] MEDS ORDERED: MORPHINE 4 MG/1 ML INJ IV PRN (03:34)
[2022-01-19] MEDS ORDERED: MAGNESIUM HYDROXIDE (MOM) ORAL LIQD UDC PO PRN (03:34)
[2022-01-19] MEDS ORDERED: DEXTROSE 10% *Hypoglycemia IV PRN (03:56)
--- NOTE | 2022-01-19 03:57 | History and Physical Report ---
History of Present Illness Date of examination: 01/19/22 Date of admission: 01/19/2022 Chief complaint: Shortness of breath History of present illness: 71-year-old male with known history of obstructive sleep apnea on CPAP at home, history of COPD, peripheral arterial disease presents to the emergency room today with complaint of shortness of breath. Patient is typically on oxygen at home 2 L but had to increase oxygen level to 4 L today. He denies any chest pain, no fever or chills, no nausea vomiting and no diaphoresis. Patient denies any headache or dizziness. Patient denies any sick contacts and no recent travel. Denies any contact with anyone with COVID-19. Upon arrival in the emergency room today, he was found to be in respiratory distress and subsequently placed on BiPAP. Work-up in the emergency room today, chest x-ray reveals mild diffuse i nterstitial opacities which are nonspecific. This could be due to pulmonary edema. Patient was placed on BiPAP upon arrival in the emergency room and also has some nebulizing treatments and steroids. Past History Past Medical History: arthritis, COPD, diabetes, GERD, hypertension Past Surgical History: hernia repair, Other (Left lower extremity stent placement, vasectomy) Social history: no significant social history Family history: no significant family history Medications and Allergies Allergies Allergy/AdvReac Type Severity Reaction Status Date / Time Iodinated Contrast Media AdvReac Hives Verified 01/17/22 18:31 [Iodinated Contrast Media - IV Dye] Penicillins AdvReac Hives Verified 01/17/22 18:31 Home Medications Medication Instructions Recorded Confirmed Last Taken Type Atenolol [Tenormin] 100 mg PO DAILY 10/08/13 05/24/15 05/23/15 History Fosinopril Sodium 40 mg PO DAILY 10/08/13 05/24/15 05/23/15 History Insulin Glargine,Hum.rec.anlog 55 unit SUB-Q DAILY 10/08/13 05/24/15 05/23/15 History [Lantus Solostar] Insulin NPH, Human [NovoLIN N] 18 units SQ DAILY 10/08/13 05/24/15 05/23/15 History Naproxen [Naprosyn TAB] 500 mg PO BID 10/08/13 05/24/15 05/23/15 History Omeprazole [PriLOSEC] 20 mg PO BID 10/08/13 05/24/15 05/23/15 History Tamsulosin [Flomax] 0.4 mg PO QDAY 10/08/13 05/24/15 05/23/15 History metFORMIN [Glucophage] 1,000 mg PO DAILY 10/08/13 05/24/15 05/23/15 History traMADoL [Ultram 50 MG tab] 50 mg PO Q4HR PRN 10/08/13 05/24/15 05/23/15 History Albuterol Sulfate [Proventil HFA] 1 - 2 puff IH Q4H PRN #1 hfa.aer.ad 10/09/13 05/24/15 05/23/15 Rx DOXYCYCLINE Hyclate [Vibramycin 100 mg PO BID #14 capsule 10/09/13 05/24/15 05/23/15 Rx CAP] Sodium Phosphate,[place]-Dibasic 133 ml RC ONCE #1 enema 10/09/13 05/24/15 05/23/15 Rx [Fleet Enema] polyethylene glycoL 3350 [Miralax] 17 gm PO DAILY #10 powder 10/09/13 05/24/15 05/23/15 Rx predniSONE [Deltasone] 20 mg PO BID #8 tablet 10/09/13 05/24/15 05/23/15 Rx Albuterol Mdi (or & Nicu Only) 2 puff IH QID PRN #1 inhalation 11/02/13 05/24/15 05/23/15 Rx [ProAir HFA Inhaler] levoFLOXacin [Levaquin TAB] 750 mg PO QDAY #7 tablet 11/02/13 05/24/15 05/23/15 Rx Gentamicin 0.3% Ophth Soln 1 drops OP Q4H #1 bottle 01/11/14 05/24/15 05/23/15 Rx HYDROcodone/APAP 7.5-325 [[place] 1 each PO Q6HR PRN #10 tablet 01/11/14 05/24/15 05/23/15 Rx 7.5-325 mg TAB] Linaclotide [Linzess] 145 mcg PO QDAY #30 capsule 03/26/15 05/24/15 05/23/15 Rx Active Meds: Active Medications Acetaminophen (Acetaminophen 325 Mg Tab) 650 mg PO Q4H PRN PRN Reason: Pain MILD(1-3)/Fever >100.5/OVIEDO Albuterol/Ipratropium (Ipratropium/Albuterol Sulfate 3 Ml Ampul.Neb) 1 ampul IH Q4HRT [facility] Dextrose (Dextrose 50% In Water (25gm) 50 Ml Syringe) 50 ml IV Q30MIN PRN; Protocol PRN Reason: Hypoglycemia Furosemide (Furosemide 40 Mg/4 Ml Inj) 40 mg IV BID@0600,1800 [facility] Insulin Human Lispro (Insulin Lispro 100 Unit/Ml) 0 unit SUB-Q ACHS [facility]; Protocol Magnesium Hydroxide (Magnesium Hydroxide (Mom) Oral Liqd Udc) 30 ml PO Q4H PRN PRN Reason: Constipation Methylprednisolone Sodium Succinate (Methylprednisolone Sod Succinate 40 Mg/1 Ml Inj) 40 mg IV Q8HR [facility] Morphine Sulfate (Morphine 2 Mg/1 Ml Inj) 2 mg IV Q4H PRN PRN Reason: Pain, Moderate (4-6) Morphine Sulfate (Morphine 4 Mg/1 Ml Inj) 4 mg IV Q4H PRN PRN Reason: Pain , Severe (7-10) Ondansetron HCl (Ondansetron 4 Mg/2 Ml Inj) 4 mg IV Q8H PRN PRN Reason: Nausea And Vomiting Sodium Chloride (Sodium Chloride 0.9% 10 Ml Flush Syringe) 10 ml IV BID [facility] Sodium Chloride (Sodium Chloride 0.9% 10 Ml Flush Syringe) 10 ml IV PRN PRN PRN Reason: LINE FLUSH Review of Systems Constitutional: no fever, no chills Ears, nose, mouth and throat: no nasal congestion, no sore throat Cardiovascular: no chest pain, no palpitations Respiratory: shortness of breath, wheezing, no cough Gastrointestinal: no abdominal pain, no nausea, no vomiting, no diarrhea Genitourinary Male: no dysuria, no hematuria, no nocturia Musculoskeletal: no neck pain, no low back pain Integumentary: no rash, no pruritis Neurological: no headaches, no confusion Psychiatric: no anxiety, no depression Endocrine: no polyphagia, no polydipsia, no polyuria, no nocturia Exam - Constitutional Vitals: Temp Pulse Resp BP Pulse Ox 98 F 82 16 112/55 100 01/19/22 01:14 01/19/22 03:14 01/19/22 03:14 01/19/22 03:14 01/19/22 03:14 General appearance: Present: mild distress, well-nourished, obese - EENT Eyes: Present: PERRL, EOM intact. Absent: scleral icterus ENT: hearing intact, clear oral mucosa, dentition normal - Neck Neck: Present: supple, normal ROM - Respiratory Respiratory effort: labored Respiratory: bilateral: wheezing - Cardiovascular Rhythm: regular Heart Sounds: Present: S1 & S2. Absent: systolic murmur, diastolic murmur, rub, click - Extremities Extremities: no ischemia, pulses intact, pulses symmetrical, normal temperature, normal color, Full ROM Extremity abnormal: edema (2+ bilateral ankle edema.) - Abdominal General gastrointestinal: Present: soft, non-tender, non-distended, normal bowel sounds. Absent: mass - Integumentary Integumentary: Present: clear, warm, dry. Absent: rash - Musculoskeletal Musculoskeletal: strength equal bilaterally - Psychiatric Psychiatric: appropriate mood/affect, intact judgment & insight, memory intact, cooperative - Neurologic Neurologic: CNII-XII intact, no focal deficits, moves all extremities HEART Score - HEART Score Troponin: Troponin T < 0.010 ng/mL (0.00-0.029) 01/19/22 01:37 Results - Labs CBC & Chem 7: 01/19/22 01:37 01/19/22 01:37 Labs: Abnormal lab results 01/19/22 01/19/22 01/19/22 Range/Units 01:37 01:37 01:37 MCH 27 L (28-32) pg MCHC 31 L (32-34) % Lymph % (Auto) 6.4 L (13.4-35.0) % Lymph # (Auto) 0.5 L (1.2-5.4) K/mm3 Seg Neutrophils % 86.5 H (40.0-70.0) % VBG pH (7.320-7.420) Potassium 5.1 H (3.6-5.0) mmol/L BUN 27 H (9-20) mg/dL Glucose 248 H (75-100) mg/dL Magnesium 2.60 H (1.7-2.3) mg/dL Albumin 3.6 L (3.9-5) g/dL 01/19/22 Range/Units 01:37 MCH (28-32) pg MCHC (32-34) % Lymph % (Auto) (13.4-35.0) % Lymph # (Auto) (1.2-5.4) K/mm3 Seg Neutrophils % (40.0-70.0) % VBG pH 7.274 L (7.320-7.420) Potassium (3.6-5.0) mmol/L BUN (9-20) mg/dL Glucose (75-100) mg/dL Magnesium (1.7-2.3) mg/dL Albumin (3.9-5) g/dL Assessment and Plan - Patient Problems (1) Acute respiratory failure with hypoxia Current Visit: Yes Status: Acute Plan to address problem: Possibly secondary to underlying pulmonary vascular congestion versus COPD. Patient currently on BiPAP. Placed on nebulizing treatments. Patient also placed on diuretics. Consult placed to pulmonology for evaluation. (2) Diabetes mellitus Current Visit: Yes Status: Acute Plan to address problem: Patient placed on sliding scale insulin. We will monitor Accu-Cheks. (3) FREDERICK (obstructive sleep apnea) Current Visit: Yes Status: Acute Plan to address problem: Patient uses CPAP at home. (4) Hypertension Current Visit: No Status: Acute Qualifiers: Hypertension type: primary hypertension Qualified Code(s): I10 - Essential (primary) hypertension Plan to address problem: We will resume routine home medications and monitor vital signs closely. (5) DVT prophylaxis Current Visit: Yes Status: Acute Plan to address problem: Patient placed on subcutaneous heparin. (6) Full code status Current Visit: Yes Status: Acute Plan to address problem: Patient is full code.
[2022-01-19] MEDS ORDERED: IPRATROPIUM/ALBUTEROL SULFATE 3 ML AMPUL.NEB IH SCH (04:00)
[2022-01-19 04:58] LABS: ABG Methemoglobin 0.7 % (0.0-1.5); ABG Oxygen Saturation 98.7 % (95.0-99.0); ABG PCO2 83.9 mm Hg; ABG PH 7.238 pH Units (7.350-7.450); ABG PO2 160.5 mm Hg (80.0-90.0)
[2022-01-19] MEDS ORDERED: methylPREDNISolone Sod Succinate 40 MG/1 ML INJ IV SCH (06:00)
[2022-01-19] MEDS ORDERED: FUROSEMIDE 40 MG/4 ML INJ IV SCH (06:00)
[2022-01-19] MEDS: INSULIN LISPRO 100 UNIT/ML SUB-Q SCH ×2 (09:55→11:46)
--- NOTE | 2022-01-19 10:12 | Progress Note ---
Assessment and Plan Assessment and plan: 71-year-old male with known history of obstructive sleep apnea on CPAP at home, history of COPD on home oxygen of 4 L, peripheral arterial disease presents to the emergency room with complaint of shortness of breath. The patient was admitted with diagnosis of acute hypercapnic respiratory failure and was placed on BiPAP. ABG revealed a PCO2 of 83.9. Chest x-ray reveals mild diffuse interstitial opacities which are nonspecific. Acute on chronic hypercapnic and hypoxic respiratory failure Acute COPD exacerbation Diabetes mellitus type 2 Obstructive sleep apnea Hypertension 01/19/2022. Etiology of respiratory failure secondary to COPD exacerbation. I doubt patient has CHF component with normal BNP. Follow-up echocardiogram to rule out pulmonary hypertension. Continue bronchodilators/breathing treatments and IV steroids. Continue Accu-Cheks and sliding scale insulin. Cont. antih ypertensive meds. History Interval history: No new issues overnight Hospitalist Physical - Constitutional Vitals: Temp Pulse Resp BP Pulse Ox 98 F 87 22 131/59 98 01/19/22 01:14 01/19/22 08:53 01/19/22 08:53 01/19/22 08:20 01/19/22 08:20 General appearance: Present: no acute distress, well-nourished, obese - EENT Eyes: Present: PERRL, EOM intact ENT: hearing intact, clear oral mucosa, dentition normal - Neck Neck: Present: supple, normal ROM - Respiratory Respiratory effort: normal Respiratory: bilateral: CTA - Cardiovascular Rhythm: regular Heart Sounds: Present: S1 & S2. Absent: gallop, rub - Extremities Extremities: no ischemia, No edema, Full ROM - Abdominal General gastrointestinal: soft, non-tender, non-distended, normal bowel sounds - Integumentary Integumentary: Present: clear, warm, dry - Neurologic Neurologic: CNII-XII intact, moves all extremities HEART Score - HEART Score Troponin: Troponin T < 0.010 ng/mL (0.00-0.029) 01/19/22 01:37 Results - Labs CBC & Chem 7: 01/19/22 01:37 01/19/22 01:37 Labs: Laboratory Last Values WBC 8.1 K/mm3 (4.5-11.0) 01/19/22 01:37 RBC 4.48 M/mm3 (3.65-5.03) 01/19/22 01:37 Hgb 12.1 gm/dl (11.8-15.2) 01/19/22 01:37 Hct 39.2 % (35.5-45.6) 01/19/22 01:37 MCV 88 fl (84-94) 01/19/22 01:37 MCH 27 pg (28-32) L 01/19/22 01:37 MCHC 31 % (32-34) L 01/19/22 01:37 RDW 14.2 % (13.2-15.2) 01/19/22 01:37 Plt Count 206 K/mm3 (140-440) 01/19/22 01:37 Lymph % (Auto) 6.4 % (13.4-35.0) L 01/19/22 01:37 [place] % (Auto) 6.4 % (0.0-7.3) 01/19/22 01:37 Eos % (Auto) 0.2 % (0.0-4.3) 01/19/22 01:37 Baso % (Auto) 0.5 % (0.0-1.8) 01/19/22 01:37 Lymph # (Auto) 0.5 K/mm3 (1.2-5.4) L 01/19/22 01:37 [place] # (Auto) 0.5 K/mm3 (0.0-0.8) 01/19/22 01:37 Eos # (Auto) 0.0 K/mm3 (0.0-0.4) 01/19/22 01:37 Baso # (Auto) 0.0 K/mm3 (0.0-0.1) 01/19/22 01:37 Seg Neutrophils % 86.5 % (40.0-70.0) H 01/19/22 01:37 Seg Neutrophils # 7.0 K/mm3 (1.8-7.7) 01/19/22 01:37 PT 13.3 Sec. (12.2-14.9) 01/19/22 01:37 INR 0.92 (0.87-1.13) 01/19/22 01:37 ABG pH 7.238 pH Units (7.350-7.450) L 01/19/22 04:30 POC ABG pCO2 TNR 01/19/22 01:37 ABG pCO2 83.9 mm Hg 01/19/22 04:30 POC ABG pO2 TNR 01/19/22 01:37 ABG pO2 160.5 mm Hg (80.0-90.0) H 01/19/22 04:30 POC ABG HCO3 TNR 01/19/22 01:37 ABG HCO3 35.0 mmol/L (20.0-26.0) H 01/19/22 04:30 ABG O2 Saturation 98.7 % (95.0-99.0) 01/19/22 04:30 ABG O2 Content 17.0 (0.0-44) 01/19/22 04:30 POC ABG Base Excess TNR 01/19/22 01:37 ABG Base Excess 5.0 mmol/L (-2.0-3.0) H 01/19/22 04:30 ABG Hemoglobin 12.4 gm/dl (14.0-18.0) L 01/19/22 04:30 ABG Oxyhemoglobin TNR 01/19/22 01:37 ABG Carboxyhemoglobin 2.2 % (0.0-5.0) 01/19/22 04:30 ABG Methemoglobin 0.7 % (0.0-1.5) 01/19/22 04:30 ABG Sodium TNR 01/19/22 01:37 ABG Potassium TNR 01/19/22 01:37 ABG Chloride TNR 01/19/22 01:37 ABG Glucose TNR 01/19/22 01:37 ABG Lactate TNR 01/19/22 01:37 VBG pH 7.274 (7.320-7.420) L 01/19/22 01:37 Oxyhemoglobin 95.8 % (95.0-99.0) 01/19/22 04:30 Carboxyhemoglobin TNR 01/19/22 01:37 FiO2 100 % 01/19/22 04:30 FiO2 % TNR 01/19/22 01:37 Sodium 141 mmol/L (137-145) 01/19/22 01:37 Potassium 5.1 mmol/L (3.6-5.0) H 01/19/22 01:37 Chloride 99.8 mmol/L (98-107) 01/19/22 01:37 Carbon Dioxide 29 mmol/L (22-30) 01/19/22 01:37 Anion Gap 17 mmol/L 01/19/22 01:37 BUN 27 mg/dL (9-20) H 01/19/22 01:37 Creatinine 1.2 mg/dL (0.8-1.3) 01/19/22 01:37 Estimated GFR > 60 ml/min 01/19/22 01:37 BUN/Creatinine Ratio 23 % 01/19/22 01:37 Glucose 248 mg/dL (75-100) H 01/19/22 01:37 Calcium 8.5 mg/dL (8.4-10.2) 01/19/22 01:37 Magnesium 2.60 mg/dL (1.7-2.3) H 01/19/22 01:37 Total Bilirubin 0.30 mg/dL (0.1-1.2) 01/19/22 01:37 Bilirubin TNR 01/19/22 01:37 AST 14 units/L (5-40) 01/19/22 01:37 ALT 18 units/L (7-56) 01/19/22 01:37 Alkaline Phosphatase 89 units/L (35-129) 01/19/22 01:37 Total Creatine Kinase 130 units/L (55-170) 01/19/22 01:37 Troponin T < 0.010 ng/mL (0.00-0.029) 01/19/22 01:37 NT-Pro-B Natriuret Pep 261.5 pg/mL (0-900) 01/19/22 01:37 Total Protein 7.0 g/dL (6.3-8.2) 01/19/22 01:37 Albumin 3.6 g/dL (3.9-5) L 01/19/22 01:37 Albumin/Globulin Ratio 1.1 % 01/19/22 01:37 Arterial Blood Glucose TNR 01/19/22 01:37 Arterial Blood Ionized Calcium TNR 01/19/22 01:37 Active Medications - Current Medications Current Medications: Generic Name Dose Route Start Last Admin Trade Name Freq PRN Reason Stop Dose Admin Acetaminophen 650 mg 01/19/22 03:34 Acetaminophen 325 Mg Tab PO Q4H PRN Pain MILD(1-3)/Fever >100.5/OVIEDO Albuterol/Ipratropium 1 ampul 01/19/22 04:00 01/19/22 08:53 Ipratropium/Albuterol Sulfate 3 Ml Ampul.Neb IH 1 ampul Q4HRT [facility] Administration Dextrose 0 ml 01/19/22 03:56 Dextrose 10% *Hypoglycemia IV PRN PRN Hypoglycemia Furosemide 40 mg 01/19/22 06:00 Furosemide 40 Mg/4 Ml Inj IV BID@0600,1800 [facility] Insulin Human Lispro 0 unit 01/19/22 07:30 Insulin Lispro 100 Unit/Ml SUB-Q ACHS [facility] Protocol Magnesium Hydroxide 30 ml 01/19/22 03:34 Magnesium Hydroxide (Mom) Oral Liqd Udc PO Q4H PRN Constipation Methylprednisolone Sodium Succinate 40 mg 01/19/22 06:00 Methylprednisolone Sod Succinate 40 Mg/1 Ml Inj IV Q8HR [facility] Morphine Sulfate 2 mg 01/19/22 03:34 Morphine 2 Mg/1 Ml Inj IV Q4H PRN Pain, Moderate (4-6) Morphine Sulfate 4 mg 01/19/22 03:34 Morphine 4 Mg/1 Ml Inj IV Q4H PRN Pain , Severe (7-10) Ondansetron HCl 4 mg 01/19/22 03:34 Ondansetron 4 Mg/2 Ml Inj IV Q8H PRN Nausea And Vomiting Sodium Chloride 10 ml 01/19/22 10:00 Sodium Chloride 0.9% 10 Ml Flush Syringe IV BID [facility] Sodium Chloride 10 ml 01/19/22 03:34 Sodium Chloride 0.9% 10 Ml Flush Syringe IV PRN PRN LINE FLUSH
--- NOTE | 2022-01-19 13:28 | Electrocardiograph Report ---
[facility] Test Date: 2022-01-18 Test Time: 23:41:59 Pat Name: WANDY OVALLES SR Department: Room: [place] [address] Gender: M Rn Outpatient Surgery: NURSE : 1950 Requested By: ERAN ORDONEZ Order Number: [id number] Reading MD: Kimberlee Mast Measurements Intervals [place] Rate: 86 P: 82 GA: 136 QRS: 82 QRSD: 76 T: 78 QT: 373 QTc: 447 Interpretive Statements Sinus rhythm Possible anteroseptal infarct, age indeterminate Compared to ECG 01/17/2022 18:17:03 No significant change Electronically Signed On 01-19-2022 13:27:33 EST by Kimberlee Mast
--- NOTE | 2022-01-19 13:45 | Consultation ---
History of Present Illness Consult date: 01/19/22 Requesting physician: WALTER ESCALANTE Reason for consult: other (Acute Hypoxemic Respiratory Failure) History of present illness: PULMONARY/CCM CONSULT NOTE (Full dictation # ) Please see dictated notes for full details Past History Past Medical History: arthritis, COPD, diabetes, GERD, hypertension Past Surgical History: hernia repair, Other (Left lower extremity stent placement, vasectomy) Social history: no significant social history Family history: no significant family history Medications and Allergies Allergies Allergy/AdvReac Type Severity Reaction Status Date / Time Iodinated Contrast Media AdvReac Hives Verified 01/17/22 18:31 [Iodinated Contrast Media - IV Dye] Penicillins AdvReac Hives Verified 01/17/22 18:31 Home Medications Medication Instructions Recorded Confirmed Last Taken Type Atenolol [Tenormin] 100 mg PO DAILY 10/08/13 05/24/15 05/23/15 History Fosinopril Sodium 40 mg PO DAILY 10/08/13 05/24/15 05/23/15 History Insulin Glargine,Hum.rec.anlog 55 unit SUB-Q DAILY 10/08/13 05/24/15 05/23/15 History [Lantus Solostar] Insulin NPH, Human [NovoLIN N] 18 units SQ DAILY 10/08/13 05/24/15 05/23/15 History Naproxen [Naprosyn TAB] 500 mg PO BID 10/08/13 05/24/15 05/23/15 History Omeprazole [PriLOSEC] 20 mg PO BID 10/08/13 05/24/15 05/23/15 History Tamsulosin [Flomax] 0.4 mg PO QDAY 10/08/13 05/24/15 05/23/15 History metFORMIN [Glucophage] 1,000 mg PO DAILY 10/08/13 05/24/15 05/23/15 History traMADoL [Ultram 50 MG tab] 50 mg PO Q4HR PRN 10/08/13 05/24/15 05/23/15 History Albuterol Sulfate [Proventil HFA] 1 - 2 puff IH Q4H PRN #1 hfa.aer.ad 10/09/13 05/24/15 05/23/15 Rx DOXYCYCLINE Hyclate [Vibramycin 100 mg PO BID #14 capsule 10/09/13 05/24/15 05/23/15 Rx CAP] Sodium Phosphate,[place]-Dibasic 133 ml RC ONCE #1 enema 10/09/13 05/24/15 05/23/15 Rx [Fleet Enema] polyethylene glycoL 3350 [Miralax] 17 gm PO DAILY #10 powder 10/09/13 05/24/15 05/23/15 Rx predniSONE [Deltasone] 20 mg PO BID #8 tablet 10/09/13 05/24/15 05/23/15 Rx Albuterol Mdi (or & Nicu Only) 2 puff IH QID PRN #1 inhalation 11/02/13 05/24/15 05/23/15 Rx [ProAir HFA Inhaler] levoFLOXacin [Levaquin TAB] 750 mg PO QDAY #7 tablet 11/02/13 05/24/15 05/23/15 Rx Gentamicin 0.3% Ophth Soln 1 drops OP Q4H #1 bottle 01/11/14 05/24/15 05/23/15 Rx HYDROcodone/APAP 7.5-325 [[place] 1 each PO Q6HR PRN #10 tablet 01/11/14 05/24/15 05/23/15 Rx 7.5-325 mg TAB] Linaclotide [Linzess] 145 mcg PO QDAY #30 capsule 03/26/15 05/24/15 05/23/15 Rx Active Meds: Active Medications Acetaminophen (Acetaminophen 325 Mg Tab) 650 mg PO Q4H PRN PRN Reason: Pain MILD(1-3)/Fever >100.5/OVIEDO Albuterol/Ipratropium (Ipratropium/Albuterol Sulfate 3 Ml Ampul.Neb) 1 ampul IH Q4HRT [facility] Last Admin: 01/19/22 08:53 Dose: 1 ampul Dextrose (Dextrose 10% *Hypoglycemia) 0 ml IV PRN PRN PRN Reason: Hypoglycemia Furosemide (Furosemide 40 Mg/4 Ml Inj) 40 mg IV BID@0600,1800 [facility] Last Admin: 01/19/22 09:54 Dose: 40 mg Insulin Glargine (Insulin Glargine 100 Units/Ml) 55 units SUB-Q DAILY [facility] Insulin Human Lispro (Insulin Lispro 100 Unit/Ml) 0 unit SUB-Q ACHS [facility]; Protocol Last Admin: 01/19/22 11:46 Dose: 8 unit Insulin Human NPH (Insulin Nph, Human 100 Unit/1 Ml) 18 unit SUB-Q DAILY [facility] Magnesium Hydroxide (Magnesium Hydroxide (Mom) Oral Liqd Udc) 30 ml PO Q4H PRN PRN Reason: Constipation Metformin HCl (Metformin 500 Mg Tab) 1,000 mg PO QDDIAB [facility] Methylprednisolone Sodium Succinate (Methylprednisolone Sod Succinate 40 Mg/1 Ml Inj) 40 mg IV Q8HR [facility] Last Admin: 01/19/22 09:55 Dose: 40 mg Miscellaneous Medication (Fosinopril Sodium [Fosinopril Sodium]) 40 mg PO DAILY [facility] Miscellaneous Medication (Linaclotide [Linzess]) 145 mcg PO QDAY [facility] Morphine Sulfate (Morphine 2 Mg/1 Ml Inj) 2 mg IV Q4H PRN PRN Reason: Pain, Moderate (4-6) Morphine Sulfate (Morphine 4 Mg/1 Ml Inj) 4 mg IV Q4H PRN PRN Reason: Pain , Severe (7-10) Ondansetron HCl (Ondansetron 4 Mg/2 Ml Inj) 4 mg IV Q8H PRN PRN Reason: Nausea And Vomiting Sodium Chloride (Sodium Chloride 0.9% 10 Ml Flush Syringe) 10 ml IV BID [facility] Sodium Chloride (Sodium Chloride 0.9% 10 Ml Flush Syringe) 10 ml IV PRN PRN PRN Reason: LINE FLUSH Tamsulosin HCl (Tamsulosin 0.4 Mg Cap) 0.4 mg PO QDAY [facility] Physical Examination Vital signs: Vital Signs Temp Pulse Resp BP Pulse Ox 97.5 F L 93 H 20 131/76 51 L 01/18/22 23:13 01/18/22 23:13 01/18/22 23:13 01/18/22 23:13 01/18/22 23:13 Results - Laboratory Findings CBC and BMP: 01/19/22 01:37 01/19/22 01:37 ABG ABG pH 7.238 pH Units (7.350-7.450) L 01/19/22 04:30 POC ABG pCO2 TNR 01/19/22 01:37 ABG pCO2 83.9 mm Hg 01/19/22 04:30 POC ABG pO2 TNR 01/19/22 01:37 ABG pO2 160.5 mm Hg (80.0-90.0) H 01/19/22 04:30 POC ABG HCO3 TNR 01/19/22 01:37 ABG O2 Saturation 98.7 % (95.0-99.0) 01/19/22 04:30 PT/INR, D-dimer PT 13.3 Sec. (12.2-14.9) 01/19/22 01:37 INR 0.92 (0.87-1.13) 01/19/22 01:37 Abnormal lab findings: Abnormal Labs 01/19/22 01/19/22 01/19/22 01:37 01:37 01:37 MCH 27 L MCHC 31 L Lymph % (Auto) 6.4 L Lymph # (Auto) 0.5 L Seg Neutrophils % 86.5 H ABG pH ABG pO2 ABG HCO3 ABG Base Excess ABG Hemoglobin VBG pH Potassium 5.1 H BUN 27 H Glucose 248 H POC Glucose Magnesium 2.60 H Albumin 3.6 L 01/19/22 01/19/22 01/19/22 01:37 04:30 11:39 MCH MCHC Lymph % (Auto) Lymph # (Auto) Seg Neutrophils % ABG pH 7.238 L ABG pO2 160.5 H ABG HCO3 35.0 H ABG Base Excess 5.0 H ABG Hemoglobin 12.4 L VBG pH 7.274 L Potassium BUN Glucose POC Glucose 355 H Magnesium Albumin
[2022-01-19 14:56] VITALS: BP 160/90
--- NOTE | 2022-01-19 15:05 | Consultation ---
History of Present Illness Consult date: 01/19/22 Requesting physician: WALTER ESCALANTE Consult reason: congestive heart failure History of present illness: Patient is 71-year-old male with past medical history of COPD, obstructive sleep apnea, peripheral arterial disease, hypertension, and diabetes, who presented to the ED with a complaint of shortness of breath x1 week. Patient reports that over the last week he has progressively worsening shortness of breath. He states he has had no relieving or worsening factors. Patient does state that he has also had a productive cough. Patient denies any complaint of orthopnea, bilateral lower extremity edema chest pain, nausea, vomiting, diaphoresis. 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 Reports he had recent cardiac work-up and states that he was told his cardiac health is good. Cardiology is consulted for heart failure Past History Past Medical History: arthritis, COPD, diabetes, GERD, hypertension Past Surgical History: hernia repair, Other (Left lower extremity stent placement, vasectomy) Social history: no significant social history Family history: no significant family history Medications and Allergies Allergies Allergy/AdvReac Type Severity Reaction Status Date / Time Iodinated Contrast Media AdvReac Hives Verified 01/17/22 18:31 [Iodinated Contrast Media - IV Dye] Penicillins AdvReac Hives Verified 01/17/22 18:31 Home Medications Medication Instructions Recorded Confirmed Last Taken Type Atenolol [Tenormin] 100 mg PO DAILY 10/08/13 05/24/15 05/23/15 History Fosinopril Sodium 40 mg PO DAILY 10/08/13 05/24/15 05/23/15 History Insulin Glargine,Hum.rec.anlog 55 unit SUB-Q DAILY 10/08/13 05/24/15 05/23/15 History [Lantus Solostar] Insulin NPH, Human [NovoLIN N] 18 units SQ DAILY 10/08/13 05/24/15 05/23/15 History Naproxen [Naprosyn TAB] 500 mg PO BID 10/08/13 05/24/15 05/23/15 History Omeprazole [PriLOSEC] 20 mg PO BID 10/08/13 05/24/15 05/23/15 History Tamsulosin [Flomax] 0.4 mg PO QDAY 11/05/24/15 05/23/15 History metFORMIN [Glucophage] 1,000 mg PO DAILY 10/08/13 05/24/15 05/23/15 History traMADoL [Ultram 50 MG tab] 50 mg PO Q4HR PRN 10/08/13 05/24/15 05/23/15 History Albuterol Sulfate [Proventil HFA] 1 - 2 puff IH Q4H PRN #1 hfa.aer.ad 10/09/13 05/24/15 05/23/15 Rx DOXYCYCLINE Hyclate [Vibramycin 100 mg PO BID #14 capsule 10/09/13 05/24/15 05/23/15 Rx CAP] Sodium Phosphate,[place]-Dibasic 133 ml RC ONCE #1 enema 10/09/13 05/24/15 05/23/15 Rx [Fleet Enema] polyethylene glycoL 3350 [Miralax] 17 gm PO DAILY #10 powder 10/09/13 05/24/15 05/23/15 Rx predniSONE [Deltasone] 20 mg PO BID #8 tablet 10/09/13 05/24/15 05/23/15 Rx Albuterol Mdi (or & Nicu Only) 2 puff IH QID PRN #1 inhalation 11/02/13 05/24/15 05/23/15 Rx [ProAir HFA Inhaler] levoFLOXacin [Levaquin TAB] 750 mg PO QDAY #7 tablet 11/02/13 05/24/15 05/23/15 Rx Gentamicin 0.3% Ophth Soln 1 drops OP Q4H #1 bottle 01/11/14 05/24/15 05/23/15 Rx HYDROcodone/APAP 7.5-325 [[place] 1 each PO Q6HR PRN #10 tablet 01/11/14 05/24/15 05/23/15 Rx 7.5-325 mg TAB] Linaclotide [Linzess] 145 mcg PO QDAY #30 capsule 03/26/15 05/24/15 05/23/15 Rx Active Meds: Active Medications Acetaminophen (Acetaminophen 325 Mg Tab) 650 mg PO Q4H PRN PRN Reason: Pain MILD(1-3)/Fever >100.5/OVIEDO Albuterol/Ipratropium (Ipratropium/Albuterol Sulfate 3 Ml Ampul.Neb) 1 ampul IH Q4HRT [facility] Last Admin: 01/19/22 08:53 Dose: 1 ampul Dextrose (Dextrose 10% *Hypoglycemia) 0 ml IV PRN PRN PRN Reason: Hypoglycemia Furosemide (Furosemide 40 Mg/4 Ml Inj) 40 mg IV BID@0600,1800 [facility] Last Admin: 01/19/22 09:54 Dose: 40 mg Insulin Glargine (Insulin Glargine 100 Units/Ml) 55 units SUB-Q DAILY [facility] Insulin Human Lispro (Insulin Lispro 100 Unit/Ml) 0 unit SUB-Q ACHS [facility]; Protocol Last Admin: 01/19/22 11:46 Dose: 8 unit Insulin Human NPH (Insulin Nph, Human 100 Unit/1 Ml) 18 unit SUB-Q DAILY [facility] Magnesium Hydroxide (Magnesium Hydroxide (Mom) Oral Liqd Udc) 30 ml PO Q4H PRN PRN Reason: Constipation Metformin HCl (Metformin 500 Mg Tab) 1,000 mg PO QDDIAB [facility] Methylprednisolone Sodium Succinate (Methylprednisolone Sod Succinate 40 Mg/1 Ml Inj) 40 mg IV Q8HR [facility] Last Admin: 01/19/22 09:55 Dose: 40 mg Miscellaneous Medication (Fosinopril Sodium [Fosinopril Sodium]) 40 mg PO DAILY [facility] Miscellaneous Medication (Linaclotide [Linzess]) 145 mcg PO QDAY [facility] Morphine Sulfate (Morphine 2 Mg/1 Ml Inj) 2 mg IV Q4H PRN PRN Reason: Pain, Moderate (4-6) Morphine Sulfate (Morphine 4 Mg/1 Ml Inj) 4 mg IV Q4H PRN PRN Reason: Pain , Severe (7-10) Ondansetron HCl (Ondansetron 4 Mg/2 Ml Inj) 4 mg IV Q8H PRN PRN Reason: Nausea And Vomiting Sodium Chloride (Sodium Chloride 0.9% 10 Ml Flush Syringe) 10 ml IV BID [facility] Sodium Chloride (Sodium Chloride 0.9% 10 Ml Flush Syringe) 10 ml IV PRN PRN PRN Reason: LINE FLUSH Tamsulosin HCl (Tamsulosin 0.4 Mg Cap) 0.4 mg PO QDAY [facility] Review of Systems All systems: negative Physical Examination Vital Signs Temp Pulse Resp BP Pulse Ox 97.5 F L 93 H 20 131/76 51 L 01/18/22 23:13 01/18/22 23:13 01/18/22 23:13 01/18/22 23:13 01/18/22 23:13 General appearance: no acute distress HEENT: Positive: PERRL, Normocephaly Neck: Positive: trachea midline Cardiac: Positive: Reg Rate and Rhythm Lungs: Positive: Decreased Breath Sounds Neuro: Positive: Grossly Intact Abdomen: Positive: Soft, Active Bowel Sounds Skin: Negative: Rash, Suspicious Lesions, Ulceration Extremities: Present: upper extr. pulses. Absent: edema Results 01/19/22 01:37 01/19/22 01:37 Cardiac Enzymes 01/19/22 Range/Units 01:37 AST 14 (5-40) units/L Coagulation 01/19/22 Range/Units 01:37 PT 13.3 (12.2-14.9) Sec. INR 0.92 (0.87-1.13) CBC 01/19/22 Range/Units 01:37 WBC 8.1 (4.5-11.0) K/mm3 RBC 4.48 (3.65-5.03) M/mm3 Hgb 12.1 (11.8-15.2) gm/dl Hct 39.2 (35.5-45.6) % Plt Count 206 (140-440) K/mm3 Lymph # (Auto) 0.5 L (1.2-5.4) K/mm3 [place] # (Auto) 0.5 (0.0-0.8) K/mm3 Eos # (Auto) 0.0 (0.0-0.4) K/mm3 Baso # (Auto) 0.0 (0.0-0.1) K/mm3 Comprehensive Metabolic Panel 01/19/22 Range/Units 01:37 Sodium 141 (137-145) mmol/L Potassium 5.1 H (3.6-5.0) mmol/L Chloride 99.8 (98-107) mmol/L Carbon Dioxide 29 (22-30) mmol/L BUN 27 H (9-20) mg/dL Creatinine 1.2 (0.8-1.3) mg/dL Glucose 248 H (75-100) mg/dL Calcium 8.5 (8.4-10.2) mg/dL AST 14 (5-40) units/L ALT 18 (7-56) units/L Alkaline Phosphatase 89 (35-129) units/L Total Protein 7.0 (6.3-8.2) g/dL Albumin 3.6 L (3.9-5) g/dL - Imaging and Cardiology Echo: report reviewed EKG interpretations - Telemetry EKG Rhythm: Sinus Rhythm - EKG Sinus rhythms and dysrhythmias: sinus rhythm Assessment and Plan Patient is 71-year-old male with past medical history of COPD, obstructive sleep apnea, peripheral arterial disease, hypertension, and diabetes, who presented to the ED with a complaint of shortness of breath x1 week Acute exacerbation COPD-pulmonology following Pulmonary hypertension Peripheral vascular disease Hypertension Diabetes Echo 01/19/2022-EF 50%. Mild diastolic dysfunction is present impaired relaxation pattern. Trace tricuspid regurgitation. Moderate pulmonary hypertension Plan: EKG shows sinus rhythm 86. No acute ischemic changes. Troponins negative x2. AMI ruled out patient denies any complaints of chest pain BNP noted to be negative. Patient has diminished breath sounds no bilateral lower extremity edema. Echo results finding above. Patient did not appear to be clinically heart failure Agree with Lasix for diuresis Resume outpatient antihypertensive medication Patient seen in conjunction with Dr. Magaña who agrees with this plan of care - Patient Problems (1) Acute respiratory failure with hypoxia Current Visit: Yes Status: Acute (2) Diabetes mellitus Current Visit: Yes Status: Acute (3) FREDERICK (obstructive sleep apnea) Current Visit: Yes Status: Acute (4) Acute respiratory distress Current Visit: No Status: Acute (5) Hypertension Current Visit: No Status: Acute Qualifiers: Hypertension type: primary hypertension Qualified Code(s): I10 - Essential (primary) hypertension
[2022-01-20] MEDS ORDERED: metFORMIN 500 MG TAB PO SCH (08:00)
[2022-01-20] MEDS ORDERED: INSULIN NPH, HUMAN 100 UNIT/1 ML SUB-Q SCH (10:00)
[2022-01-20] MEDS ORDERED: INSULIN GLARGINE HUM REC ANLOG 100 UNIT/ML SUB-Q SCH (10:00)
[2022-01-20] MEDS ORDERED: LINACLOTIDE 145 MCG PO SCH (10:00)
[2022-01-20] MEDS ORDERED: INSULIN GLARGINE 100 UNITS/ML SUB-Q SCH (10:00)
[2022-01-20] MEDS ORDERED: FOSINOPRIL SODIUM 40 MG PO SCH (10:00)
[2022-01-20] MEDS ORDERED: TAMSULOSIN 0.4 MG CAP PO SCH (10:00)
== END 2022-01-19 15:05 | disposition left against medical advice (07) | DRG 189 ==
LOC: ED 23:08 → 3A 01-19 03:35
PROVIDERS: ADMIT Internal Medicine Geriatric Medicine; ATTEND Hospitalist
PROC: 5A09357 Assistance with Respiratory Ventilation, Less than 24 Consecutive Hours, Continuous Positive Airway Pressure (ICD-10-PCS; principal; 2022-01-19)
PROC: 4A033R1 Measurement of Arterial Saturation, Peripheral, Percutaneous Approach (ICD-10-PCS; 2022-01-19)
DX: J96.21 Acute and chronic respiratory failure with hypoxia (principal); J44.1 Chronic obstructive pulmonary disease with (acute) exacerbation; J96.22 Acute and chronic respiratory failure with hypercapnia; G47.33 Obstructive sleep apnea (adult) (pediatric); I10 Essential (primary) hypertension; E11.9 Type 2 diabetes mellitus without complications; K21.9 Gastro-esophageal reflux disease without esophagitis; M19.90 Unspecified osteoarthritis, unspecified site; I73.9 Peripheral vascular disease, unspecified; I27.20 Pulmonary hypertension, unspecified; E66.9 Obesity, unspecified; Z68.31 Body mass index [BMI] 31.0-31.9, adult
CPT/HCPCS: 36415; 36600; 71045; 80053; 82550; 82803; 82805; 82962; 83735; 83880; 84484; 85025; 85610; 93005; 93010; 93306; 93970; 94640; 94644; 94760; G0378; J3490; Q9967; C8929; J1815; J1940; J2920; J2930

== ENCOUNTER 2022-01-21 20:59 | Emergency (ER) | payer MEDICARE ==
[~2022-01-21 20:59] MED LIST: EPINEPHrine 1 MG/10 ML SYRINGE ONE
--- NOTE | 2022-01-21 21:12 | Emergency Department Report ---
ED CPR HPI - General Stated Complaint: CARDIAC ARREST Time Seen by Provider: 01/21/22 21:05 Source: EMS - History of Present Illness Initial Comments: Patient is 71 years old male with history of COPD, CHF, obstructive sleep apnea, diabetes and hypertension. Patient brought to the emergency room via EMS from home in a full cardiac arrest, CPR in progress. EMS stated that patient went to bathroom and his checked on him and found him unresponsive. EMS stated that initial rhythm was asystole. ACLS protocol initiated by EMS. Upon arrival to the ER, ACLS protocol continued and CPR continued. Rhythm still asystole. U nfortunately patient has been in asystole for at least 30 minutes with no success with all this resuscitation. Patient pronounced at 9:04 PM. For further information please refer to code sheets. Complaint: found unresponsive Place: home Initial Findings in the Field: no pulse, systole ROSC in the Field: No Associated Injuries: No Treatments Prior to Arrival: other airway device, chest compressions, epinephrine mgs # (4) - Related Data Home Medications Medication Instructions Recorded Confirmed Last Taken Atenolol [Tenormin] 100 mg PO DAILY 10/08/13 05/24/15 05/23/15 Fosinopril Sodium 40 mg PO DAILY 10/08/13 05/24/15 05/23/15 Insulin Glargine,Hum.rec.anlog 55 unit SUB-Q DAILY 10/08/13 05/24/15 05/23/15 [Lantus Solostar] Insulin NPH, Human [NovoLIN N] 18 units SQ DAILY 10/08/13 05/24/15 05/23/15 Naproxen [Naprosyn TAB] 500 mg PO BID 10/08/13 05/24/15 05/23/15 Omeprazole [PriLOSEC] 20 mg PO BID 10/08/13 05/24/15 05/23/15 Tamsulosin [Flomax] 0.4 mg PO QDAY 10/08/13 05/24/15 05/23/15 metFORMIN [Glucophage] 1,000 mg PO DAILY 10/08/13 05/24/15 05/23/15 traMADoL [Ultram 50 MG tab] 50 mg PO Q4HR PRN 10/08/13 05/24/15 05/23/15 Previous Rx's Medication Instructions Recorded Last Taken Type Albuterol Sulfate [Proventil HFA] 1 - 2 puff IH Q4H PRN #1 hfa.aer.ad 10/09/13 05/23/15 Rx DOXYCYCLINE Hyclate [Vibramycin 100 mg PO BID #14 capsule 10/09/13 05/23/15 Rx CAP] Sodium Phosphate,[place]-Dibasic 133 ml RC ONCE #1 enema 10/09/13 05/23/15 Rx [Fleet Enema] polyethylene glycoL 3350 [Miralax] 17 gm PO DAILY #10 powder 10/09/13 05/23/15 Rx predniSONE [Deltasone] 20 mg PO BID #8 tablet 10/09/13 05/23/15 Rx Albuterol Mdi (or & Nicu Only) 2 puff IH QID PRN #1 inhalation 11/02/13 05/23/15 Rx [ProAir HFA Inhaler] levoFLOXacin [Levaquin TAB] 750 mg PO QDAY #7 tablet 11/02/13 05/23/15 Rx Gentamicin 0.3% Ophth Soln 1 drops OP Q4H #1 bottle 01/11/14 05/23/15 Rx HYDROcodone/APAP 7.5-325 [[place] 1 each PO Q6HR PRN #10 tablet 01/11/14 05/23/15 Rx 7.5-325 mg TAB] Linaclotide [Linzess] 145 mcg PO QDAY #30 capsule 03/26/15 05/23/15 Rx Allergies Allergy/AdvReac Type Severity Reaction Status Date / Time Iodinated Contrast Media AdvReac Hives Verified 01/17/22 18:31 [Iodinated Contrast Media - IV Dye] Penicillins AdvReac Hives Verified 01/17/22 18:31 ED Review of Systems ROS: Stated complaint: CARDIAC ARREST Other details as noted in HPI Comment: Unobtainable due to pts medical conditions ED Past Medical Hx - Past Medical History Hx Hypertension: Yes Hx Diabetes: Yes (IDDM 2010) Hx GERD: Yes Hx Arthritis: Yes (BACK ) Hx COPD: Yes Additional medical history: hernia - Surgical History Hx Coronary Stent: Yes (LLE) Additional Surgical History: vasectomy - Social History Smoking Status: Never Smoker - Medications Home Medications: Home Medications Medication Instructions Recorded Confirmed Last Taken Type Atenolol [Tenormin] 100 mg PO DAILY 10/08/13 05/24/15 05/23/15 History Fosinopril Sodium 40 mg PO DAILY 10/08/13 05/24/15 05/23/15 History Insulin Glargine,Hum.rec.anlog 55 unit SUB-Q DAILY 10/08/13 05/24/15 05/23/15 History [Lantus Solostar] Insulin NPH, Human [NovoLIN N] 18 units SQ DAILY 10/08/13 05/24/15 05/23/15 History Naproxen [Naprosyn TAB] 500 mg PO BID 10/08/13 05/24/15 05/23/15 History Omeprazole [PriLOSEC] 20 mg PO BID 10/08/13 05/24/15 05/23/15 History Tamsulosin [Flomax] 0.4 mg PO QDAY 10/08/13 05/24/15 05/23/15 History metFORMIN [Glucophage] 1,000 mg PO DAILY 10/08/13 05/24/15 05/23/15 History traMADoL [Ultram 50 MG tab] 50 mg PO Q4HR PRN 10/08/13 05/24/15 05/23/15 History Albuterol Sulfate [Proventil HFA] 1 - 2 puff IH Q4H PRN #1 hfa.aer.ad 10/09/13 05/24/15 05/23/15 Rx DOXYCYCLINE Hyclate [Vibramycin 100 mg PO BID #14 capsule 10/09/13 05/24/15 05/23/15 Rx CAP] Sodium Phosphate,[place]-Dibasic 133 ml RC ONCE #1 enema 10/09/13 05/24/15 05/23/15 Rx [Fleet Enema] polyethylene glycoL 3350 [Miralax] 17 gm PO DAILY #10 powder 10/09/13 05/24/15 05/23/15 Rx predniSONE [Deltasone] 20 mg PO BID #8 tablet 10/09/13 05/24/15 05/23/15 Rx Albuterol Mdi (or & Nicu Only) 2 puff IH QID PRN #1 inhalation 11/02/13 05/24/15 05/23/15 Rx [ProAir HFA Inhaler] levoFLOXacin [Levaquin TAB] 750 mg PO QDAY #7 tablet 11/02/13 05/24/1515 Rx Gentamicin 0.3% Ophth Soln 1 drops OP Q4H #1 bottle 01/11/14 05/24/15 05/23/15 Rx HYDROcodone/APAP 7.5-325 [[place] 1 each PO Q6HR PRN #10 tablet 01/11/14 05/24/15 05/23/15 Rx 7.5-325 mg TAB] Linaclotide [Linzess] 145 mcg PO QDAY #30 capsule 03/26/15 05/24/15 05/23/15 Rx ED Physical Exam - Head Head exam: Present: atraumatic - Eye Pupils: Present: other (4 mm fixed and dilated.) - Respiratory Respiratory exam: Present: other (No spontaneous breathing.) - Cardiovascular Cardiovascular Exam: Present: other (No spontaneous heart tone.) - GI/Abdominal GI/Abdominal exam: Present: soft. Absent: distended - Neurological Exam Neurological exam: Present: other (CPR in progress.) Critical Care Time: Yes Critical care time in (mins) excluding proc time.: 35 Critical care attestation.: If time is entered above; I have spent that time in minutes in the direct care of this critically ill patient, excluding procedure time. ED Disposition Clinical Impression: Cardiopulmonary arrest Disposition: 20 Is pt being admited?: No Condition: Stable
[2022-01-21] MEDS ORDERED: EPINEPHrine 1 MG/10 ML SYRINGE ONE (22:45)
== END 2022-01-22 01:00 ==
LOC: ED 20:59
DX: I46.9 Cardiac arrest, cause unspecified (principal); Z88.0 Allergy status to penicillin; Z91.041 Radiographic dye allergy status
CPT/HCPCS: 92950; 99291; J0171